=== PATIENT | female | born 1990 | race Caucasian/White ===

== ENCOUNTER 2016-11-01 17:34 | Emergency (ER) | payer OTHER ==
[2016-11-01 18:59] VITALS: BP 105/53
[2016-11-01] MEDS ORDERED: Cyclobenzaprine TAB* 10 MG PO ONE (19:12)
[2016-11-01] MEDS ORDERED: Ketorolac INJ* 60 MG/2 ML VIAL IM ONE (19:12)
--- NOTE | 2016-11-01 19:14 | ED ---
Back Pain - HPI Summary HPI Summary: 26F presents with back pain for a week. She denies any injury. She has history of back pain and states that is is in the same spot. She denies any numbness or tingling. She denies any UTI symptoms and states she does not have a uti. She denies any loss of bowel or bladder or saddle anaesthesia. She has tried tyenlol and ibuprofen without relief. - History of Current Complaint Chief Complaint: EDBackInjuryPain Stated Complaint: LOWER BACK PAIN Time Seen by Provider: 11/01/16 18:44 Pain Intensity: 7 - Allergies/Home Medications Allergies/Adverse Reactions: Allergies Allergy/AdvReac Type Severity Reaction Status Date / Time No Known Allergies Allergy Verified 03/29/13 08:14 PMH/Surg Hx/FS Hx/Imm Hx Endocrine/Hematology History: Denies: Hx Anticoagulant Therapy Cardiovascular History: Denies: Hx Hypertension Respiratory History: Reports: Hx Asthma - exercise induced Infectious Disease History: No Infectious Disease History: Denies: Traveled Outside the [place] in Last 30 Days - Family History Known Family History: Positive: Hypertension - Social History Alcohol Use: None Substance Use Type: Reports: None Smoking Status (MU): Never Smoked Tobacco Have You Smoked in the Last Year: No Review of Systems Negative: Fever Negative: Chest Pain Negative: Shortness Of Breath Positive: Myalgia - back pain All Other Systems Reviewed And Are Negative: Yes Physical Exam Triage Information Reviewed: Yes Vital Signs On Initial Exam: Initial Vitals Temp Pulse Resp BP Pulse Ox 97.2 F 103 20 143/96 95 11/01/16 17:35 11/01/16 17:35 11/01/16 17:35 11/01/16 17:35 11/01/16 17:35 Vital Signs Reviewed: Yes Appearance: Positive: Well-Appearing Skin: Positive: Warm, Dry Head/Face: Positive: Normal Head/Face Inspection Eyes: Positive: Normal, Conjunctiva Clear Respiratory/Lung Sounds: Positive: Clear to Auscultation, Breath Sounds Present Cardiovascular: Positive: Normal, RRR Musculoskeletal: Positive: Strength/ROM Intact - back, Other - tenderness across back, neg SLR Neurological: Positive: Reflexes Intact - patella Diagnostics - Vital Signs Vital Signs Temp Pulse Resp BP Pulse Ox 11/01/16 18:55 97.5 F 72 16 105/53 100 08/06/17 17:35 97.2 F 103 20 143/96 95 - Laboratory Lab Statement: Any lab studies that have been ordered have been reviewed, and results considered in the medical decision making process. Back Pain Course/Dx - Course Course Of Treatment: 26F presents with back pain for a week. She denies any injury. She has history of back pain and states that is is in the same spot. She denies any numbness or tingling. She denies any UTI symptoms and states she does not have a uti. She denies any loss of bowel or bladder or saddle anaesthesia. She has tried tyenlol and ibuprofen without relief. on exam tender lower back. neg SLR. discussed will not get image as pain as in same spot. will treat with flexeril. patient understands and agrees with plan. - Diagnoses Differential Diagnosis/HQI/PQRI: Positive: Fracture, Strain, Sprain Provider Diagnoses: Back pain Discharge - Discharge Plan Condition: Good Disposition: HOME Prescriptions: Cyclobenzaprine TAB* [Flexeril 10 MG TAB*] 10 mg PO TID PRN #9 tab PRN Reason: Pain Patient Education Materials: Back Pain (ED) Forms: *Work Release Referrals: No Primary Care Phys,NOPCP [Primary Care Provider] - Additional Instructions: Take muscle relaxers three times a day for 3 days Use ibuprofen or Tylenol for pain every 6 hours ice/heat area, move as much as possible Follow up with primary within 5 days Return to ED if develop any new or worsening symptoms
== END 2016-11-01 19:48 | disposition home or self-care (01) ==
LOC: ED 17:34
DX: M54.9 Dorsalgia, unspecified (principal)
CPT/HCPCS: 96372; 99281; A9270-GY; J1885

== ENCOUNTER 2017-03-16 18:10 | Emergency (ER) | payer OTHER ==
--- NOTE | 2017-03-16 19:28 | UC ---
Respiratory Complaint HPI - HPI Summary HPI Summary: Pt presents with cough and wheezing for one week. 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 She has an albuterol inhaler at home which she has been using with good relief, but her symptoms come right back soon after. Denies fever, chills SOB, chest pain, sinus symptoms, abdominal pain, N/v/D/C - History of Current Complaint Hx Obtained From: Patient Hx Last Menstrual Period: last week Onset/Duration: Gradual Onset Timing: Constant Severity Initially: Mild Severity Currently: Mild Pain Intensity: 5 Pain Scale Used: 0-10 Numeric Character: Cough: Nonproductive <Benjamin Mejia - Last Filed: 03/16/17 21:05> <Claudia Clifford - Last Filed: 03/16/17 21:25> - History of Current Complaint Chief Complaint: UCGeneralIllness Stated Complaint: URI Time Seen by Provider: 03/16/17 19:27 - Allergies/Home Medications Allergies/Adverse Reactions: Allergies Allergy/AdvReac Type Severity Reaction Status Date / Time No Known Allergies Allergy Verified 03/16/17 18:47 Home Medications: Home Medications Cyanocobalamin [Vitamin B-12] 2,500 units SL DAILY 03/16/17 [History Confirmed 03/16/17] Escitalopram Oxalate [Lexapro 20 mg] 20 mg PO DAILY 03/16/17 [History Confirmed 03/16/17] Multiple Vitamins W/ Minerals [Multivitamin Adults] 1 tab PO DAILY 03/16/17 [ History Confirmed 03/16/17] Naproxen [Naproxen 500 mg] 500 mg PO BID 03/16/17 [History Confirmed 03/16/17] PMH/Surg Hx/FS Hx/Imm Hx Previously Healthy: Yes Respiratory History: Asthma Psychological History: Anxiety, Depression Other History Of: Negative For: Anticoagulant Therapy - Surgical History Surgical History: None - Family History Known Family History: Positive: Hypertension - Social History Occupation: Employed Full-time Lives: With Family Alcohol Use: None Substance Use Type: None Smoking Status (MU): Never Smoked Tobacco Have You Smoked in the Last Year: No Household Exposure Type: Cigarettes - Immunization History Most Recent Influenza Vaccination: 02/15/13 Most Recent Tetanus Shot: needs Most Recent Pneumonia Vaccination: na <Benjamin Mejia - Last Filed: 03/16/17 21:05> Review of Systems Constitutional: Negative Skin: Negative Eyes: Negative ENT: Negative Respiratory: Cough Cardiovascular: Negative Gastrointestinal: Negative All Other Systems Reviewed And Are Negative: Yes <Benjamin Mejia - Last Filed: 03/16/17 21:05> Physical Exam Triage Information Reviewed: Yes Appearance: Well-Appearing, Well-Nourished Vital Signs: Initial Vital Signs Temp 97.6 F 03/16/17 18:42 Pulse 99 03/16/17 18:42 Resp 18 03/16/17 18:42 BP 141/67 03/16/17 18:42 Pulse Ox 99 03/16/17 18:42 Vital Signs Reviewed: Yes Eyes: Positive: Conjunctiva Clear. Negative: Conjunctiva Inflamed, Discharge ENT: Positive: Hearing grossly normal, Pharynx normal, TMs normal, Uvula midline. Negative: Pharyngeal erythema, Nasal congestion, Nasal drainage, TM bulging, TM dull, TM red, Tonsillar swelling, Tonsillar exudate, Sinus tenderness Neck: Positive: Supple, Nontender, No Lymphadenopathy Respiratory: Positive: Chest non-tender, Lungs clear, No respiratory distress, No accessory muscle use, Wheezing - Throughout - mild. Negative: Crackles Cardiovascular: Positive: RRR, No Murmur, Pulses Normal Neurological: Positive: Alert Psychological: Positive: Age Appropriate Behavior Skin: Negative: rashes <Benjamin Mejia - Last Filed: 03/16/17 21:05> Vital Signs: Initial Vital Signs Temp 97.6 F 03/16/17 18:42 Pulse 99 03/16/17 18:42 Resp 18 03/16/17 18:42 BP 141/67 03/16/17 18:42 Pulse Ox 99 03/16/17 18:42 <Claudia Clifford - Last Filed: 03/16/17 21:25> UC Diagnostic Evaluation - Laboratory O2 Sat by Pulse Oximetry: 99 <Benjamin Mejia - Last Filed: 03/16/17 21:05> Re-Evaluation - Re-Evaluation First Eval Re-Evaluation Time: 21:08 Change: Improved Comment: Lung sounds significantly improved - no wheezing. Pt reports feeling greatly improved and is able to take a deep breath without coughing. <Benjamin Mejia - Last Filed: 03/16/17 21:05> Respiratory Course/Dx - Course Course Of Treatment: Bronchitis - significantly improved with Duoneb in clinic. Advised to use her albuterol inhaler 2 puff every 4 hours. Rx for tessalon TID for the cough. - Differential Dx/Diagnosis Differential Diagnosis/HQI/PQRI: Asthma, Bronchitis, Exacerbation Of COPD, Influenza, Lower Resp Infection, Sinusitis Provider Diagnoses: Bronchitis <Benjamin Mejia - Last Filed: 03/16/17 21:05> Discharge <Benjamin Mejia - Last Filed: 03/16/17 21:05> <Claudia Clifford - Last Filed: 03/16/17 21:25> - Discharge Plan Condition: Stable Disposition: HOME Prescriptions: Benzonatate CAP* [Tessalon 100 MG CAP*] 100 mg PO TID PRN #30 cap PRN Reason: Cough Patient Education Materials: Acute Bronchitis (ED) Referrals: No Primary Care Phys,NOPCP [Primary Care Provider] - Additional Instructions: If you develop a fever, SOB, chest pain, new or worsening symptoms - please call your PCP or go to the ED. Your blood pressure was mildly elevated at todays visit. Please see your primary provider within 4 weeks for recheck and re-evaluation. Attestation Statement User Type: Provider - I was available for consult. This patient was seen by the [facility]. The patient was not presented to, seen by, or examined by me. -Jj <Claudia Clifford - Last Filed: 03/16/17 21:25>
[2017-03-16] MEDS ORDERED: Albuterol/Ipratropium NEB.SOL* Albuterol 2.5 MG/Ipratropium 0.5 MG 3 ML INH ONE (19:34)
[2017-03-16] MEDS ORDERED: Albuterol 0.5% CONC NEB.SOL* 5 MG/ML 20 ml BOT INH ONE (19:39)
[2017-03-16] MEDS ORDERED: Ipratropium 0.5MG/2.5ML NEB* 0.5 MG/2.5 ML NEB.SOLN INH ONE (19:40)
[2017-03-16] MEDS ORDERED: Albuterol 2.5 MG/3 ML NEB.SOL* (0.083%) INH ONE (19:41)
[2017-03-16 20:32] VITALS: BP 136/90
== END 2017-03-16 21:14 | disposition home or self-care (01) ==
LOC: UCEAST 18:10
DX: J45.909 Unspecified asthma, uncomplicated (principal); F41.8 Other specified anxiety disorders
CPT/HCPCS: 99212; G0463; J7611; J7644

== ENCOUNTER 2017-06-04 08:34 | Emergency (ER) | payer OTHER ==
[2017-06-04 08:49] VITALS: BP 128/77
--- NOTE | 2017-06-04 09:32 | UC ---
Respiratory Complaint HPI - HPI Summary HPI Summary: 1. Onset yesterday of sore throat and cough. She does have history of asthma but states that her inhaler is not helping. She denies fever, ear pain, N/V/D. Does not feel wheezy. 2. Has an appointment with her new PCP in 2 weeks. She has run out of her Lexapro and is requesting a refill of this to last her through until her appointment. - History of Current Complaint Chief Complaint: UCGeneralIllness Stated Complaint: COUGH Time Seen by Provider: 06/04/17 09:13 Hx Obtained From: Patient Hx Last Menstrual Period: no period - states mirena Onset/Duration: Gradual Onset, Lasting Days - 1 DAY, Still Present Timing: Constant Severity Initially: Moderate Severity Currently: Moderate Pain Intensity: 5 Pain Scale Used: 0-10 Numeric Character: Cough: Nonproductive Aggravating Factors: Nothing Alleviating Factors: Nothing Associated Signs And Symptoms: Positive: URI. Negative: Dyspnea, Fever, Chills , Pleuritic Chest Pain, Wheezing, Nasal Congestion - Allergies/Home Medications Allergies/Adverse Reactions: Allergies Allergy/AdvReac Type Severity Reaction Status Date / Time No Known Allergies Allergy Verified 06/04/17 08:40 Home Medications: Home Medications Albuterol HFA INHALER* [Ventolin HFA Inhaler*] 1 puff INH Q6H PRN 06/04/17 [ History Confirmed 06/04/17] PMH/Surg Hx/FS Hx/Imm Hx Respiratory History: Asthma Psychological History: Anxiety, Depression Other History Of: Negative For: Anticoagulant Therapy - Surgical History Surgical History: None - Family History Known Family History: Positive: Hypertension - Social History Alcohol Use: None Substance Use Type: None Smoking Status (MU): Never Smoked Tobacco Have You Smoked in the Last Year: No Household Exposure Type: Cigarettes - Immunization History Most Recent Influenza Vaccination: 02/15/13 Most Recent Tetanus Shot: needs Most Recent Pneumonia Vaccination: na Review of Systems Constitutional: Negative ENT: Sore Throat Respiratory: Cough Gastrointestinal: Negative All Other Systems Reviewed And Are Negative: Yes Physical Exam Triage Information Reviewed: Yes Appearance: Well-Appearing, No Pain Distress, Well-Nourished Vital Signs: Initial Vital Signs Temp 98 F 06/04/17 08:43 Pulse 89 06/04/17 08:43 Resp 16 06/04/17 08:43 BP 128/77 03/09/18 08:43 Pulse Ox 97 06/04/17 08:43 Vital Signs Reviewed: Yes Eyes: Positive: Conjunctiva Clear ENT: Positive: Hearing grossly normal, Pharynx normal, TMs normal Neck: Positive: Supple, Tenderness @ - MILDLY TENDER SPFL CERVICAL LAD, Enlarged Nodes @ - MILDLY TENDER SPFL CERVICAL LAD Respiratory Exam: Normal Cardiovascular Exam: Normal Abdomen Description: Positive: Soft Musculoskeletal: Positive: No Edema Neurological: Positive: Alert Psychological: Positive: Age Appropriate Behavior Skin: Negative: rashes UC Diagnostic Evaluation - Laboratory O2 Sat by Pulse Oximetry: 97 Respiratory Course/Dx - Differential Dx/Diagnosis Provider Diagnoses: ACUTE URI Discharge - Discharge Plan Condition: Stable Disposition: HOME Prescriptions: Escitalopram (NF) [Lexapro 10 mg (NF)] 10 mg PO DAILY #30 tab predniSONE TAB* [Deltasone TAB*] 40 mg PO DAILY #10 tab Patient Education Materials: Upper Respiratory Infection (ED) Referrals: No Primary Care Phys,NOPCP [Primary Care Provider] - Additional Instructions: YOUR SYMPTOMS ARE LIKELY VIRALLY MEDIATED AND SHOULD RESOLVE ON THEIR OWN WITH TIME. NO INDICATION FOR ANTIBIOTICS AT PRESENT. REST, HYDRATE, OTC MEDS NEEDED. SEEK FOLLOW-UP IF YOU ARE NOT IMPROVING OVER THE NEXT 1-2 WEEKS. LEXAPRO REFILLED TODAY. KEEP YOUR APPT WITH YOUR NEW PCP IN 2 WEEKS.
== END 2017-06-04 09:50 | disposition home or self-care (01) ==
LOC: UCEAST 08:34
DX: J06.9 Acute upper respiratory infection, unspecified (principal); J45.909 Unspecified asthma, uncomplicated; F41.9 Anxiety disorder, unspecified; F32.9 Major depressive disorder, single episode, unspecified
CPT/HCPCS: 99212; G0463

== ENCOUNTER 2017-06-19 11:21 | Emergency (ER) | payer OTHER ==
[2017-06-19 11:39] VITALS: BP 134/75
--- NOTE | 2017-06-19 12:27 | RAD ---
HISTORY: Left shoulder pain, history of dislocation COMPARISONS: None VIEWS: 4, Frontal internal rotation, external rotation, outlet, and axillary views of the left shoulder FINDINGS: BONE DENSITY: Normal. BONES: There is no displaced fracture. JOINTS: There is no arthropathy. ALIGNMENT: There is no dislocation. SOFT TISSUES: Unremarkable. OTHER FINDINGS: None. IMPRESSION: NO ACUTE OSSEOUS INJURY. IF SYMPTOMS PERSIST, RECOMMEND REPEAT IMAGING.
[2017-06-19] MEDS ORDERED: Ibuprofen TAB* 400 MG PO ONE (12:32)
--- NOTE | 2017-06-19 12:39 | UC ---
Shikha Little Rebecca, scribed for Claudia Clifford MD on 06/19/17 at 1141 . Upper Extremity HPI - HPI Summary HPI Summary: Pt is a 26 y/o F who presents to [facility] c/o left shoulder pain. 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 On triage, pain was severe, ranked 8/10 and is located diffusely throughout the shoulder. Pain is alleviated by a Flexeril ( taken every night for back pain), aggravated by movement, and is not being treated with other medications. Denies elbow and wrist pain and numbness or tingling. Reports that a few years ago she fell off a horse while riding, causing a dislocation of the left shoulder which has not required surgery. Left hand dominant. No chance of . pt states has developed tightness in left upper back Pt's medications reviewed this visit - History of Current Complaint Chief Complaint: UCUpperExtremity Stated Complaint: SHOULDER INJURY Time Seen by Provider: 06/19/17 11:39 Hx Obtained From: Patient Hx Last Menstrual Period: 06/07/17 Onset/Duration: Lasting Weeks - 1 week, Still Present Severity Currently: Severe Pain Intensity: 8 Pain Scale Used: 0-10 Numeric Location Of Pain: Is Diffuse - Diffuse left shoulder pain Aggravating Factor(s): Movement Alleviating Factor(s): Other: - Flexeril Associated Signs And Symptoms: Negative: Numbness/Tingling Related History: Dominant Hand Left - Risk Factors Non-Orthopedic Risk Factor: Negative - Allergies/Home Medications Allergies/Adverse Reactions: Allergies Allergy/AdvReac Type Severity Reaction Status Date / Time No Known Allergies Allergy Verified 06/19/17 11:39 PMH/Surg Hx/FS Hx/Imm Hx Previously Healthy: Yes Respiratory History: Asthma Psychological History: Anxiety, Depression Other History Of: Negative For: Anticoagulant Therapy - Surgical History Surgical History: None - Family History Known Family History: Positive: Hypertension - Social History Occupation: Employed Full-time Lives: With Family Alcohol Use: None Substance Use Type: None Smoking Status (MU): Never Smoked Tobacco Have You Smoked in the Last Year: No Household Exposure Type: Cigarettes - Immunization History Most Recent Influenza Vaccination: 11/20/13 Most Recent Tetanus Shot: needs Most Recent Pneumonia Vaccination: na Review of Systems Constitutional: Negative Skin: Negative Eyes: Negative ENT: Negative Respiratory: Negative Cardiovascular: Negative Gastrointestinal: Negative Genitourinary: Negative Motor: Negative Neurovascular: Negative Musculoskeletal: Arthralgia - Diffuse L shoulder pain Neurological: Negative Psychological: Negative All Other Systems Reviewed And Are Negative: Yes - Comments Additional Review of Systems Comments: NEGATIVE: Elbow and wrist pain, numbness and tingling Physical Exam Triage Information Reviewed: Yes Appearance: Well-Appearing, No Pain Distress, Well-Nourished Vital Signs: Initial Vital Signs Temp 98.4 F 06/19/17 11:35 Pulse 98 06/19/17 11:35 Resp 18 06/19/17 11:35 BP 134/75 06/19/17 11:35 Pulse Ox 100 06/19/17 11:35 Vital Signs Reviewed: Yes Eye Exam: Normal Eyes: Positive: Conjunctiva Clear ENT: Positive: Hearing grossly normal Neck exam: Normal Neck: Positive: Supple Respiratory Exam: Normal Respiratory: Positive: Chest non-tender, Lungs clear, Normal breath sounds, No respiratory distress, No accessory muscle use Cardiovascular Exam: Normal Cardiovascular: Positive: RRR, No Murmur, Other: - 2+ radial, ulnar Abdominal Exam: Normal Abdomen Description: Positive: Nontender, No Organomegaly, Soft Musculoskeletal: Positive: Other: - no pain c/t/l/s mild discomfort along left trapezius + TTP anterior rim of left shoulder + abduction to 90 - limited second to anerior discomfort + active extension to 90 - limited second to disocomfort + flex/ext elbow + pronate/supinate + fle/ext wrist Neurological Exam: Normal Neurological: Positive: Other: - 5/5 grasp + thumb up, a ok, finger cross, finger spread Psychological Exam: Normal Diagnostics - Radiology Shoulder XR Xray Interpretation: No Acute Changes - NO ACUTE OSSEOUS INJURY. IF SYMPTOMS PERSIST, RECOMMEND REPEAT IMAGING. Physician reviewed this radiology report. Radiology Interpretation Completed By: Radiologist Re-Evaluation - Re-Evaluation First Eval Re-Evaluation Time: 12:33 Comment: Reviewed radiology results with the patient. sling. shoulder circles , elbow flex/ext demonstrated. heat. motrin/apap. sports medicine. work restriction Upper Extremity Course/Dx - Course Course Of Treatment: Patients medication reviewed this visit. pt with left anterior shoulder pain progressive x 1 week. no clear injury. point tender anterior should. will image. sling. analgesia - Differential Dx/Diagnosis Provider Diagnoses: left shoulder strain Discharge - Sign-Out/Discharge Documenting (check all that apply): Discharge - Discharge Plan Condition: Stable Disposition: HOME Patient Education Materials: Shoulder Pain (ED) Forms: *Work Release Referrals: [facility] [Provider Group] [facility] [Provider Group] Additional Instructions: - wear sling for comfort and support. It is important to take your arm out of sling 2-3 times a day - slowly bend and straighted you elbow as demonstrated. You should also make small circles with your shoulder to prevent stiffness - apply moist heat to your upper back - slow, gentle stretching exercises are important - Alternate ibuprofen (advil, motrin) and Tylenol every 3 hours for pain. Take with food. Do not take for more than 4-5 days - contact your doctor or the sport medicine group to schedule a follow-up appointment - Billing Disposition and Condition Condition: STABLE Disposition: HOME The documentation as recorded by the Shikha argueta Rebecca accurately reflects the service I personally performed and the decisions made by me, Claudia Clifford MD.
== END 2017-06-19 12:50 | disposition home or self-care (01) ==
LOC: UCEAST 11:21
DX: S46.912A Strain of unspecified muscle, fascia and tendon at shoulder and upper arm level, left arm, initial encounter (principal); X58.XXXA Exposure to other specified factors, initial encounter; Y92.9 Unspecified place or not applicable
CPT/HCPCS: 99213; A9270-GY; G0463

== ENCOUNTER 2017-10-16 13:30 | Emergency (ER) | payer OTHER ==
--- NOTE | 2017-10-16 16:14 | RAD ---
Indication: RIGHT ankle pain following recurrent twisting injury. Comparison: No relevant prior exams available on the [facility] for comparison. Technique: AP, mortise, and lateral views RIGHT ankle. REPORT AND IMPRESSION: #. Normal articular alignment. Negative for fracture. Mild soft tissue swelling over the lateral malleolus.
--- NOTE | 2017-10-16 17:10 | ED ---
Lower Extremity - HPI Summary HPI Summary: Complains of right ankle pain after twisting ankle while playing with her kids yesterday. States pain not improving. No pain at rest, pain only with weightbearing and ambulation. Patient is ambulatory. Took Tylenol prior to arrival with some relief in pain. Denies any other pain or injuries. Medical history is none. - History of Current Complaint Chief Complaint: EDExtremityLower Stated Complaint: RT ANKLE PAIN Time Seen by Provider: 10/16/17 14:10 Hx Obtained From: Patient Hx Last Menstrual Period: 06/07/17 Mechanism Of Injury: Twisted Onset of Pain: Immediate, Days Onset/Duration: Days Severity Initially: Moderate Severity Currently: Moderate Pain Intensity: 8 Pain Scale Used: 0-10 Numeric Timing: Intermittent Associated Signs And Symptoms: Positive: Negative Aggravating Factor(s): Ambulation, Weight Bearing Alleviating Factor(s): Rest, Elevation, Ice Able to Bear Weight: Yes - Allergies/Home Medications Allergies/Adverse Reactions: Allergies Allergy/AdvReac Type Severity Reaction Status Date / Time No Known Allergies Allergy Verified 06/19/17 11:39 PMH/Surg Hx/FS Hx/Imm Hx Endocrine/Hematology History: Denies: Hx Anticoagulant Therapy, Hx Diabetes, Hx Thyroid Disease Cardiovascular History: Denies: Hx Hypertension Respiratory History: Reports: Hx Asthma Denies: Hx Chronic Obstructive Pulmonary Disease (COPD) GI History: Denies: Hx Ulcer Musculoskeletal History: Denies: Hx Rheumatoid Arthritis Infectious Disease History: No Infectious Disease History: Denies: Hx Clostridium Difficile, Hx Hepatitis, Hx Human Immunodeficiency Virus (HIV), Hx of Known/Suspected MRSA, Hx Shingles, Hx Tuberculosis, Hx Known/ Suspected VRE, Hx Known/Suspected VRSA, History Other Infectious Disease, Traveled Outside the [place] in Last 30 Days - Family History Known Family History: Positive: Hypertension - Social History Alcohol Use: None Substance Use Type: Reports: None Smoking Status (MU): Never Smoked Tobacco Have You Smoked in the Last Year: No Review of Systems Constitutional: Negative Eyes: Negative ENT: Negative Cardiovascular: Negative Respiratory: Negative Gastrointestinal: Negative Genitourinary: Negative Musculoskeletal: Other Skin: Negative Neurological: Negative Psychological: Normal All Other Systems Reviewed And Are Negative: Yes Physical Exam - Summary Physical Exam Summary: No erythema, ecchymosis, deformity, swelling, extra warmth noted to right ankle. PMS intact distally. No pain with palpation of foot or any other part of right lower extremity. Full flexion and extension of right knee and hip without pain. Triage Information Reviewed: Yes Vital Signs On Initial Exam: Initial Vitals Temp Pulse Resp BP Pulse Ox 97.3 F 96 16 154/100 98 10/16/17 13:45 10/16/17 13:45 10/16/17 13:45 10/16/17 13:45 10/16/17 13:45 Vital Signs Reviewed: Yes Appearance: Positive: Well-Appearing Skin: Positive: Warm Head/Face: Positive: Normal Head/Face Inspection Eyes: Positive: Normal Neck: Positive: Supple Respiratory/Lung Sounds: Positive: Clear to Auscultation Cardiovascular: Positive: Normal Abdomen Description: Positive: Nontender Musculoskeletal: Positive: Normal Neurological: Positive: Normal Psychiatric: Positive: Normal AVPU Assessment: Alert - [place] Coma Scale Best Eye Response: 4 - Spontaneous Best Motor Response: 6 - Obeys Commands Best Verbal Response: 5 - Oriented Coma Scale Total: 15 Diagnostics - Vital Signs Vital Signs Temp Pulse Resp BP Pulse Ox 10/16/17 13:45 97.3 F 96 16 154/100 98 - Laboratory Lab Statement: Any lab studies that have been ordered have been reviewed, and results considered in the medical decision making process. - Radiology ankle Xray Interpretation: No Acute Changes Radiology Interpretation Completed By: Radiologist Lower Extremity Course/Dx - Course Course Of Treatment: Complains of right ankle pain after twisting ankle while playing with her kids yesterday. States pain not improving. No pain at rest, pain only with weightbearing and ambulation. Patient is ambulatory. Took Tylenol prior to arrival with some relief in pain. Denies any other pain or injuries. Medical history is none. No erythema, ecchymosis, deformity, swelling, extra warmth noted to right ankle. PMS intact distally. No pain with palpation of foot or any other part of right lower extremity. Full flexion and extension of right knee and hip without pain. X-ray negative for acute fracture. ankle gel Splint and crutches. Ice and ibuprofen for pain. - Diagnoses Provider Diagnoses: Ankle sprain Discharge - Sign-Out/Discharge Documenting (check all that apply): Patient Departure - Discharge Plan Condition: Stable Disposition: HOME Patient Education Materials: Ankle Sprain (ED), Ankle Stirrup Splint (ED) Forms: *Work Release Referrals: Selvin Sol MD [Primary Care Provider] - Darío Williamson MD [Medical Doctor] - Additional Instructions: Weightbearing as tolerated. Ice and ibuprofen for pain and swelling. Symptoms do not improve in 5-7 days, follow-up with orthopedics Dr. Montoya. Return to the ED for any new or worsening symptoms - Billing Disposition and Condition Condition: STABLE Disposition: Home
[2017-10-16 18:12] VITALS: BP 140/95
== END 2017-10-16 18:11 | disposition home or self-care (01) ==
LOC: ED 13:30
DX: S93.401A Sprain of unspecified ligament of right ankle, initial encounter (principal); X50.1XXA Overexertion from prolonged static or awkward postures, initial encounter; Y93.89 Activity, other specified; Y92.9 Unspecified place or not applicable
CPT/HCPCS: 99282

== ENCOUNTER 2017-10-20 15:20 | Emergency (ER) | payer OTHER ==
--- NOTE | 2017-10-20 16:24 | RAD ---
INDICATION: Right ankle pain COMPARISON: October 16, 2017 TECHNIQUE: AP and lateral views were obtained. FINDINGS: The bony structures, joint spaces, and soft tissues are normal for age. IMPRESSION: NEGATIVE EXAMINATION.
--- NOTE | 2017-10-20 17:33 | ED ---
Lower Extremity - HPI Summary HPI Summary: Patient is a 27-year-old female who presents emergency department for a right ankle injury occurred last evening. Patient states she slipped on her wet porch steps and twisted right ankle. Patient was seen in the ER several days ago for injuring the same ankle. Walking is worse with pain. Symptoms are mild in severity. Walking makes symptoms worse. Rest makes symptoms better. - History of Current Complaint Chief Complaint: EDExtremityLower Stated Complaint: RT ANKLE INJURY Time Seen by Provider: 10/20/17 16:50 Hx Obtained From: Patient Hx Last Menstrual Period: 06/07/17 Pain Intensity: 8 - Allergies/Home Medications Allergies/Adverse Reactions: Allergies Allergy/AdvReac Type Severity Reaction Status Date / Time No Known Allergies Allergy Verified 06/19/17 11:39 PMH/Surg Hx/FS Hx/Imm Hx Previously Healthy: Yes Endocrine/Hematology History: Denies: Hx Anticoagulant Therapy, Hx Diabetes, Hx Thyroid Disease Cardiovascular History: Denies: Hx Hypertension Respiratory History: Reports: Hx Asthma Denies: Hx Chronic Obstructive Pulmonary Disease (COPD) GI History: Denies: Hx Ulcer Musculoskeletal History: Denies: Hx Rheumatoid Arthritis - Immunization History Immunizations Up to Date: Yes Infectious Disease History: No Infectious Disease History: Denies: Hx Clostridium Difficile, Hx Hepatitis, Hx Human Immunodeficiency Virus (HIV), Hx of Known/Suspected MRSA, Hx Shingles, Hx Tuberculosis, Hx Known/ Suspected VRE, Hx Known/Suspected VRSA, History Other Infectious Disease, Traveled Outside the in Last 30 Days - Family History Known Family History: Positive: Hypertension - Social History Occupation: Employed Full-time Lives: With Family Alcohol Use: None Substance Use Type: Reports: None Smoking Status (MU): Never Smoked Tobacco Have You Smoked in the Last Year: No Review of Systems Positive: Other - Right ankle pain All Other Systems Reviewed And Are Negative: Yes Physical Exam Triage Information Reviewed: Yes Vital Signs On Initial Exam: Initial Vitals Temp Pulse Resp BP Pulse Ox 98 F 95 16 125/86 97 10/20/17 15:27 10/20/17 15:27 10/20/17 15:27 10/20/17 15:27 10/20/17 15:27 Vital Signs Reviewed: Yes Appearance: Positive: Well-Appearing - Pt. lying on bed in NAD. Friend present. Skin: Positive: Warm, Dry Head/Face: Positive: Normal Head/Face Inspection Eyes: Positive: Normal Neck: Positive: Supple Musculoskeletal: Positive: Other - Pain edema and diffuse pain to the right ankle. Achilles tendon intact. No pain to the base of the 5th metatarsal. Mild bruising to the right medial tibia but otherwise no proximal tib/fib or knee pain. Neurological: Positive: Normal, CN Intact II-III Psychiatric: Positive: Affect/Mood Appropriate Diagnostics - Vital Signs Vital Signs Temp Pulse Resp BP Pulse Ox 10/20/17 15:27 98 F 95 16 125/86 97 - Laboratory Lab Statement: Any lab studies that have been ordered have been reviewed, and results considered in the medical decision making process. Lower Extremity Course/Dx - Course Course Of Treatment: Patient presenting to the ER for a minor ankle injury. Ankle x-ray is negative for fracture dislocation, reading per radiology. Patient states she already has crutches and air splint from her last visit and advised her to use. Advised ice and elevation. Tylenol or Motrin for pain as directed. To follow up with orthopedics if symptoms persist. - Diagnoses Differential Diagnosis/HQI/PQRI: Positive: Contusion, Dislocation, Fracture ( Closed), Sprain, Strain Provider Diagnoses: Ankle sprain Discharge - Sign-Out/Discharge Documenting (check all that apply): Patient Departure - Discharge Plan Condition: Good Disposition: HOME Patient Education Materials: Ankle Sprain (ED) Forms: *Work Release Referrals: Selvin Sol MD [Primary Care Provider] - Sakina Caba MD [Medical Doctor] - Additional Instructions: Call the orthopedic office for follow up if pain persist Ice and elevate Tylenol or Motrin for pain as directed - Billing Disposition and Condition Condition: GOOD Disposition: Home
[2017-10-20 17:41] VITALS: BP 128/82
== END 2017-10-20 17:20 | disposition home or self-care (01) ==
LOC: ED 15:20
DX: S93.401A Sprain of unspecified ligament of right ankle, initial encounter (principal); W01.0XXA Fall on same level from slipping, tripping and stumbling without subsequent striking against object, initial encounter; Y92.008 Other place in unspecified non-institutional (private) residence as the place of occurrence of the external cause
CPT/HCPCS: 99282